=== PATIENT | female | born 1965 | race Caucasian/White ===

== ENCOUNTER → 2022-02-11 | Day surgery (SDC) | payer OTHER | END | disposition home or self-care (01) | LOC: JRADUS-SUR 08:45 | PROVIDERS: ATTEND Internal Medicine | PROC: 07D63ZX Extraction of Left Axillary Lymphatic, Percutaneous Approach, Diagnostic (ICD-10-PCS; principal; 2022-02-11) | DX: R59.0 Localized enlarged lymph nodes (principal) | CPT/HCPCS: 19083; 87899; 88305-TC; A4648 ==

== ENCOUNTER 2024-08-21 16:55 | Emergency (ER) | payer OTHER ==
[2024-08-21 17:19] VITALS: BMI 30.1
[2024-08-21] MEDS: SODIUM CHLORIDE 0.9% 500 ML INFUS.BAG IV ONE ×2 (17:46→19:49)
[2024-08-21 17:51] LABS: HEMATOCRIT 39.5 % (32.4-45.2); HEMOGLOBIN 13.4 GM/dL (10.7-15.3); MCH 30.9 pg (25.7-33.7); MCHC 33.9 g/dl (32.0-36.0); MEAN CELL VOLUME 91.2 fl (80-96); MEAN PLT VOLUME 7.9 fl (7.5-11.1); PLATELET COUNT 389 10^3/uL (134-434); RBC 4.33 M/mm3 (3.60-5.2); RDW 13.4 % (11.6-15.6); WHITE BLOOD COUNT 17.7 K/mm3 (4.0-10.0)
[2024-08-21] MEDS ORDERED: PIPERACILLIN/TAZOB 4.5 GM 4.5 GM/100 ML BAG IVPB ONE (17:55)
[2024-08-21] MEDS ORDERED: ONDANSETRON 4 MG/2 ML VIAL ONE (17:55)
[2024-08-21] MEDS ORDERED: VANCOMYCIN 1 GM PREMIX (F) 1 GM/200 ML BAG ONE (17:56)
[2024-08-21 17:57] LABS: VENOUS O2 SATURATION 87.2 % (70-80); VENOUS PCO2 30.7 mmHg (38-52); VENOUS PH 7.481 (7.310-7.410)
[2024-08-21 17:58] LABS: INR 1.06 (0.83-1.09); PROTHROMBIN TIME (PATIENT) 11.7 SEC (9.7-13.0)
[2024-08-21 18:01] LABS: ACTIVATED PTT 52.6 SECONDS (25.2-36.5)
[2024-08-21 18:03] LABS: CALCIUM 9.5 mg/dL (8.5-10.1)
[2024-08-21 18:04] LABS: ALBUMIN 3.5 g/dl (3.4-5.0)
[2024-08-21 18:07] LABS: CREATININE 0.6 mg/dL (0.55-1.3)
[2024-08-21 18:08] LABS: BILIRUBIN,TOTAL 0.8 mg/dL (0.2-1); TOT PROT 7.1 g/dl (6.4-8.2)
[2024-08-21] MEDS: PIPERACILLIN/TAZOB 4.5 GM 4.5 GM in DEXTROSE 5%-WATER 100 ML IVPB ONE (18:09)
[2024-08-21] MEDS: ONDANSETRON 4 MG/2 ML VIAL IVPUSH ONE (18:09)
[2024-08-21 18:16] LABS: URINE APPEARANCE CLEAR; URINE BILIRUBIN NEGATIVE (NEGATIVE); URINE COLOR YELLOW; URINE GLUCOSE (UA) 3+ (NEGATIVE); URINE KETONE TRACE (NEGATIVE); URINE LEUK ESTERASE NEGATIVE (NEGATIVE); URINE NITRITE NEGATIVE (NEGATIVE); URINE PROTEIN NEGATIVE (NEGATIVE)
[2024-08-21 19:23] LABS: ANISOCYTOSIS 0; MACROCYTOSIS 0
[2024-08-21] MEDS: VANCOMYCIN PREMIX 1.5 GM 1,500 MG/300 ML BAG IVPB ONE (19:42)
[2024-08-21] MEDS ORDERED: morphine SULFATE 4 MG/ML VIAL ONE (19:43)
[2024-08-21] MEDS: morphine CARPU-JECT 4 MG/1 ML DISP.SYRIN IVPUSH ONE (19:49)
[2024-08-21] MEDS: ACETAMINOPHEN 1000 MG/100 ML BAG IVPB ONE (20:32)
[2024-08-21 21:33] VITALS: BP 103/66; PULSE 82; RESP 18; TEMP 100.4
== END 2024-08-21 21:41 | disposition home or self-care (01) ==
LOC: JER 16:55
PROC: 3E03329 Introduction of Other Anti-infective into Peripheral Vein, Percutaneous Approach (ICD-10-PCS; principal; 2024-08-21)
PROC: 3E03329 Introduction of Other Anti-infective into Peripheral Vein, Percutaneous Approach (ICD-10-PCS; 2024-08-21)
PROC: 3E033NZ Introduction of Analgesics, Hypnotics, Sedatives into Peripheral Vein, Percutaneous Approach (ICD-10-PCS; 2024-08-21)
PROC: 3E033GC Introduction of Other Therapeutic Substance into Peripheral Vein, Percutaneous Approach (ICD-10-PCS; 2024-08-21)
PROC: 3E033NZ Introduction of Analgesics, Hypnotics, Sedatives into Peripheral Vein, Percutaneous Approach (ICD-10-PCS; 2024-08-21)
PROC: 3E033GC Introduction of Other Therapeutic Substance into Peripheral Vein, Percutaneous Approach (ICD-10-PCS; 2024-08-21)
DX: U07.1 COVID-19 (principal); R50.9 Fever, unspecified; R42 Dizziness and giddiness; R00.0 Tachycardia, unspecified; T85.848A Pain due to other internal prosthetic devices, implants and grafts, initial encounter; R10.12 Left upper quadrant pain; R11.0 Nausea
CPT/HCPCS: 0241U-QW; 36415; 71045-TC-FY; 74177-TC; 80053; 81003; 82803; 83605; 84484; 85025; 85610; 85730; 86850; 86900; 86901; 87040; 87086; 87186; 93005; 93010; 96365; 96368; 96375; 99285-25; J0131

== ENCOUNTER 2025-01-17 11:08 | Emergency (ER) | payer OTHER ==
[2025-01-17 11:20] VITALS: BP 149/98; PULSE 98; RESP 20; TEMP 98.2; BMI 31.5
[2025-01-17 12:16] LABS: EPI CELLS 14 /uL (0-25.1); HYALINE CASTS 0 /uL (0-3.1); URINE APPEARANCE TURBID; URINE BACTERIA >9,000 /uL (0-1359); URINE BILIRUBIN NEGATIVE (NEGATIVE); URINE COLOR ORANGE; URINE GLUCOSE (UA) 3+ (NEGATIVE); URINE KETONE NEGATIVE (NEGATIVE); URINE LEUK ESTERASE 2+ (NEGATIVE); URINE NITRITE POSITIVE (NEGATIVE); URINE PROTEIN 2+ (NEGATIVE); URINE RBC 13161 /uL (0-23.9); URINE UROBILINOGEN 1.0 mg/dL (0.2-1.0); URINE WBC 1138 /uL (0-25.8)
[2025-01-17] MEDS ORDERED: CEFTRIAXONE 1 GM/50 ML BAG ONE (12:37)
[2025-01-17] MEDS ORDERED: ACETAMINOPHEN INJECTION 100 ML ONE (12:37)
[2025-01-17 12:45] LABS: ABSOLUTE IMMATURE GRANULOCYTES 0.06 x10^3/uL (0.0-0.031); BASOPHILS # 0.09 x10^3/uL (0.01-0.08); EOSINOPHIL % 0.3 % (0.7-5.8); EOSINOPHILS # 0.04 x10^3/uL (0.04-0.36); MCHC 33.5 g/dl (32.2-35.5); MEAN CELL VOLUME 91.4 fl (79.4-94.8); MEAN PLT VOLUME 9.7 fl (9.4-12.3); MONOCYTE # 0.61 x10^3/uL (0.24-0.86); MONOCYTE % 3.9 % (4.7-12.5); RDW 12.0 % (12.4-16.4)
[2025-01-17] MEDS: ACETAMINOPHEN 1000 MG/100 ML BAG IVPB ONE (12:46)
[2025-01-17] MEDS: CEFTRIAXONE 1,000 MG in DEXTROSE 5%-WATER - 50 ML IVPB ONE (12:46)
[2025-01-17] MEDS: SODIUM CHLORIDE 0.9% 500 ML INFUS.BAG IV ONE (12:46)
[2025-01-17 12:53] LABS: INR 0.97 (0.83-1.09); PROTHROMBIN TIME (PATIENT) 10.7 SEC (9.7-13.0)
[2025-01-17 12:56] LABS: ACTIVATED PTT 54.9 SECONDS (25.2-36.5)
[2025-01-17 13:38] LABS: CO2 22.0 mmol/L (21-32); GLUCOSE,RANDOM 184.0 mg/dL (74-106)
[2025-01-17 13:41] LABS: CREATININE 0.8 mg/dL (0.55-1.3); SGOT/AST 18.0 U/L (15-37); SGPT/ALT 49.0 U/L (13-61)
[2025-01-17 13:43] LABS: TOT PROT 7.7 g/dl (6.4-8.2)
[2025-01-17 13:44] LABS: ALK PHOS 82.0 U/L (45-117)
[2025-01-17 15:31] LABS: HIV INTERPRETATION NEGATIVE (NEGATIVE)
[2025-01-17 15:38] LABS: HCV DIAGNOSTIC IN-HOUSE W/RFLX NON-REACTIVE (NONREACTIVE)
== END 2025-01-17 16:21 | disposition home or self-care (01) ==
LOC: JER 11:08
PROC: 3E03329 Introduction of Other Anti-infective into Peripheral Vein, Percutaneous Approach (ICD-10-PCS; principal; 2025-01-17)
PROC: 3E033NZ Introduction of Analgesics, Hypnotics, Sedatives into Peripheral Vein, Percutaneous Approach (ICD-10-PCS; 2025-01-17)
DX: E11.65 Type 2 diabetes mellitus with hyperglycemia (principal); N93.9 Abnormal uterine and vaginal bleeding, unspecified; R93.89 Abnormal findings on diagnostic imaging of other specified body structures; N32.89 Other specified disorders of bladder; N39.0 Urinary tract infection, site not specified; R35.0 Frequency of micturition; R30.0 Dysuria; R31.9 Hematuria, unspecified; R14.0 Abdominal distension (gaseous); R10.84 Generalized abdominal pain
CPT/HCPCS: 36415; 74177-TC; 76830-TC; 80053; 81003; 83690; 85025; 85610; 85730; 86803; 87086; 87389; 99285-25; Q9967